=== PATIENT | male | born 1990 | race Caucasian/White ===

== ENCOUNTER 2017-08-18 18:05 | Emergency (ER) | payer OTHER ==
[~2017-08-18] VITALS: Ht 185.4 cm; Wt 82.8 kg
[2017-08-18 18:07] VITALS: BP 132/68; PULSE 92; RESP 16; TEMP 98.7; O2SAT 96
[2017-08-18] MEDS ORDERED: BACT800T5 PO (18:20)
[2017-08-18] MEDS ORDERED: ERYTOIN10 RIGHT EYE (18:20)
--- NOTE | 2017-08-18 18:24 | PD ---
HPI Chief Complaint: Eye Problems/Injury Time Seen by Provider: 18:12 Travel History International Travel<30 days: No Contact w/Intl Traveler<30days: No Traveled to known affect area: No History of Present Illness HPI 26-year-old male presents to the emergency department for evaluation of right upper eyelid pain and swelling. Patient states this started approximately 5-6 days ago. He thought he saw a pimple underneath his right upper eyelid which he attempted to pop. He states that he thought and thinks it caused infection his eye. He reports watery drainage as well as some thick drainage to the eye. He denies any visual changes. No fevers or chills. No pain with EOMs. He reports history of insomnia. No known allergies. No exacerbating or alleviating factors. Moderate severity. PFSH Past Medical History Diminished Hearing: No Immune Disorder: Yes (ITP) Insomnia: Yes Tetanus Vaccination: Unknown ?: Not Social History Alcohol Use: Yes (occasional) Tobacco Use: No Substance Use: No Allergies-Medications (Allergen,Severity, Reaction): Coded Allergies: No Known Allergies (Unverified Adverse Reaction, Unknown, 08/18/17) Reported Meds & Prescriptions Reported Meds & Active Scripts Active Active Prescriptions or Reported Medications Unobtainable Review of Systems Except as stated in HPI: all other systems reviewed are Neg Physical Exam Narrative GENERAL: Well-nourished, well-developed male patient, afebrile. SKIN: Focused skin assessment warm/dry. HEAD: Normocephalic. EYES: No scleral icterus. No injection or drainage. PERRLA. EOM intact. Patient has mild erythema and swelling to the right upper eyelid. Stye noted to right upper eyelid NECK: Supple, trachea midline. No JVD or lymphadenopathy. CARDIOVASCULAR: Regular rate and rhythm without murmurs, gallops, or rubs. RESPIRATORY: Breath sounds equal bilaterally. No accessory muscle use. Lung sounds are clear to auscultation. MUSCULOSKELETAL: No cyanosis, or edema. BACK: Nontender without obvious deformity. No CVA tenderness. Data Data Last Documented VS Vital Signs Date Time Temp Pulse Resp B/P (MAP) Pulse Ox O2 Delivery O2 Flow Rate FiO2 08/18/17 18:07 98.7 92 16 132/68 (89) 96 MDM Medical Decision Making Medical Screen Exam Complete: Yes Emergency Medical Condition: Yes Medical Record Reviewed: Yes Differential Diagnosis Stye versus preseptal cellulitis versus conjunctivitis versus orbital cellulitis Narrative Course 26-year-old male presents to the emergency department for evaluation of right upper eyelid pain and swelling. Physical exam is consistent with stye possible preseptal cellulitis. No evidence of orbital cellulitis. Patient will be discharged prescription for erythromycin ophthalmic ointment and Bactrim. He is instructed to do warm compresses with gentle massage. He is to follow-up with geriatric social work professor or return here for any acute worsening of symptoms. The patient was discharged in stable condition with instructions, including return instructions and follow up instructions. Diagnosis Primary Impression: Stye Qualified Codes: H00.011 - Hordeolum externum right upper eyelid Additional Impression: Preseptal cellulitis of right upper eyelid Referrals: [facility] as needed Primary Care Physician as needed Patient Instructions: Cellulitis (ED), General Instructions, Stye (ED) Additional Instructions: Use erythromycin eye ointment as directed. Take antibiotic as directed until gone. Warm, moist compresses with gentle massage. Follow up with primary care physician or geriatric social work professor. Return to the emergency department for any acute worsening of symptoms. Med/Other Pt SpecificInfo: Prescription(s) given Scripts Sulfamethoxazole-Trimethoprim (Bactrim DS) 800-160 Mg Tab 1 TAB PO BID for Infection, #20 TAB 0 Refills Prov: Shirley Robertson 08/18/17 Erythromycin Opth Oint (Erythromycin Opth Oint) 5 Mg/Gm Oint 1 APPLIC RIGHT EYE QID for Infection, #1 TUBE 0 Refills Prov: Shirley Robertson 08/18/17 Disposition: 01 DISCHARGE HOME Condition: Stable Shirley Robertson Aug 18, 2017 18:24
== END 2017-08-18 18:25 | disposition home or self-care (01) ==
LOC: PHEFT 18:05
DX: H00.011 Hordeolum externum right upper eyelid (principal); G47.00 Insomnia, unspecified; D69.3 Immune thrombocytopenic purpura
CPT/HCPCS: 99283